=== PATIENT | male | born 2000 | race Caucasian/White ===

== ENCOUNTER 2022-02-20 12:44 | Emergency (ER) | payer OTHER, SELFPAY ==
[2022-02-20 12:52] VITALS: BP 122/70; PULSE 63; RESP 18; TEMP 37.1; O2SAT 98
--- NOTE | 2022-02-20 14:30 | DI.RAD_ITS ---
Exam(s) XR SHOULDER LT COMPLETE 2+V EXAM: XR SHOULDER LT COMPLETE 2+V CLINICAL HISTORY: trauma, left shoulder pain. TECHNIQUE: 2D digital imaging was performed. Three views. COMPARISON: No exams were available for comparison FINDINGS: BONES: No acute fracture is present. No bony destructive lesion is seen. JOINTS: No dislocation present. AC joint not widened. SOFT TISSUE: Normal. IMPRESSION: Unremarkable radiographs of the left shoulder. DATA REPOSITORY: RADIATION DOSE DELIVERED:
--- NOTE | 2022-02-20 14:37 | ED.GENADUL_ITS ---
Discharge Plan Disposition Patient Disposition: HOME Condition: Good Discharge Details Clinical Impression: Injury of shoulder Primary Care Provider: Unknown,Unknown ED Provider: Idalia Carter Discharge Instructions Instructions: Shoulder Sprain (ED), Shoulder Pain (ED) Additional Instructions: Please return immediately to the emergency department if you develop any new or worsening symptoms, if your condition does not improve as expected, or if you become otherwise concerned. It is extremely important that you call soon as possible to make an appointment to be seen in follow-up for this visit by your primary care doctor. Discharge Data Discharge Date/Time-TO BE ENTERED AT DEPARTURE: 02/20/22 15:51 Medical Decision Making Concern for shoulder fracture, contusion, other. Plan for x-rays. Exam/history at this time is not consistent with clavicle fracture, cervical/thoracic/lumbar spine fracture, neurovascular injury of the LUE, significant trauma of an area other than left shoulder. X-rays negative. Plan for sling, outpatient follow-up. I had a discussion with Patient regarding return to emergency department precautions, home care, and importance of outpatient follow-up. Pt verbalizes understanding of the plan and is amenable. Patient discharged to home with clear plan for outpatient follow- up. All questions were answered. Disposition decision was made weighing the risks and benefits of hospitalization versus outpatient treatment, the risk for further decompensation, and the patient's wishes. Medical Records Medical records reviewed: Yes I reviewed the patient's medical records. Imaging Data Radiologic Study: Attestation: I personally reviewed and interpreted this imaging study as follows: Radiologist's impression: EXAM:? XR SHOULDER LT COMPLETE 2+V CLINICAL HISTORY: ? trauma, left shoulder pain.? TECHNIQUE:? 2D digital imaging was performed.? Three views. COMPARISON:? No exams were available for comparison FINDINGS: BONES: No acute fracture is present. No bony destructive lesion is seen. JOINTS: No dislocation present.? AC joint not widened. SOFT TISSUE: Normal. IMPRESSION: Unremarkable radiographs of the left shoulder. HPI General Mode of arrival: ambulatory . Date/Time Provider Initiated Documentation: 02/20/22 12:53 . Limitations to Documentation: no limitations . Information obtained by: patient, RN notes reviewed and old records reviewed . HPI Narrative: Marko Cooper is a 21-year-old man without reported history of medical problems presenting to the emergency department with left shoulder pain. Patient reports that just prior to arrival he was skateboarding at a high rate of speed when he fell, landing on his left shoulder. Patient reports he did not hit his head, did not lose consciousness. He denies any other injury other than to left shoulder. He reports that range of motion of the left shoulder is somewhat limited secondary to pain, states that he is able to range his left elbow and left wrist normally. He denies any other pain or any other recent illness. Denies numbness or weakness. Reports that he was previously well in his usual state of health. General Stated Complaint: Orthopedic EVARISTO: 4 Review of Systems Narrative: Constitutional: denies fevers Eyes: denies eye pain ENT: denies ear pain, dental pain, sore throat Cardiovascular: denies chest pain Respiratory: denies SOB, cough GI: denies abdominal pain, vomiting, diarrhea : denies flank pain MSK: Reports left shoulder pain, denies back pain, neck pain, other arthralgias, myalgias Skin: denies rash, skin wound Neuro: denies headaches, numbness, weakness PFSH All Active Problems (Updated 02/20/22 @ 15:27 by Idalia Carter MD) Injury of shoulder (Acute) Social History Smoking/Tobacco Use Status: Current-Occasional Tobacco Type: e-cigarettes Smoking risk assessment performed?: Yes Alcohol Intake: current Alcohol Intake frequency: 0-2 drinks per day Drug use: Never Substance use type: marijuana Do you feel safe at home: Yes Do you feel safe in your relationship?: Yes Exam Narrative Exam Narrative: Constitutional: well and [id number], pleasant, conversing normally HENT: head atraumatic/normocephalic/normal inspection, mucous membranes moist Eyes: conjunctiva normal, sclera normal, pupils 3mm b/l Neck: no stridor, normal ROM, trachea midline Resp: normal work of breathing, speaking full sentences Cardio: normal rate, normal rhythm Skin: warm, dry, normal color, no rash Neuro: alert, not altered, grossly non-focal, normal tone Ext: no edema, left shoulder diffusely tender to palpation over anterior, superior, and posterior aspects without point tenderness palpation of the shoulder joint or scapula. There is no tenderness palpation of the left clavicle, midshaft/distal humerus, elbow, or forearm. Full painless range of motion of the left elbow and wrist. Motor left upper extremity intact, sensation left upper extremity intact, radial pulse intact. Psych: normal mood, normal affect, normal behavior Course Vital Signs Vital signs: Vital Signs Temperature 37.1 C 02/20/22 12:52 Pulse 63 02/20/22 12:52 Respiratory Rate 18 02/20/22 12:52 Blood Pressure 122/70 02/20/22 12:52 Pulse Oximetry 98 02/20/22 12:52 Temperature 37.1 C 02/20/22 12:52 Temperature Source Tympanic 02/20/22 12:52 Pulse 63 02/20/22 12:52 Respiratory Rate 18 02/20/22 12:52 Respiratory Effort 02/20/22 12:59 Blood Pressure 122/70 02/20/22 12:52 Blood Pressure Position Supine 02/20/22 12:52 Pulse Oximetry 98 02/20/22 12:52 Oxygen Delivery Method Room Air 02/20/22 12:52 Oxygen Flow Rate 0 02/20/22 12:52 Pain Level 3 02/20/22 12:52 PAWSS Have you Been Recently Intoxicated or Drunk Within the Last 30 days?: No Have you Ever Experienced Previous Episodes of Alcohol Withdrawal?: No Have you ever Experienced Withdrawal Seizures?: No Have you ever Experienced Delirium Tremens(DT)s?: No Have you ever undergone Alcohol Rehabilitation Treatment (i.e, inpt ot outpatient treatment programs)?: No Have you ever Experienced Blackouts?: No Have you ever Combined Alcohol with other Downers within the last 90 days?: No Have you ever Combined Alcohol with any other Substance of Abuse during the last 90 days?: No Positive Blood Alcohol level on Presentation? [PCS.BAL]: No Evidence of Increased Autonomic Activity (i.e. HR>120, tremor, sweating, agitation, nausea)?: No Result: 0
[2022-02-20] MEDS: Acetaminophen 325 MG TAB 650 MG PO (15:41)
[2022-02-20] MEDS: Ibuprofen 400 MG TAB PO (15:42)
== END 2022-02-20 15:51 | disposition home or self-care (01) ==
PROVIDERS: Emergency Provider Student in an Organized Health Care Education/Training Program
DX: S49.92XA Unspecified injury of left shoulder and upper arm, initial encounter (principal); F17.290 Nicotine dependence, other tobacco product, uncomplicated; V00.131A Fall from skateboard, initial encounter; Y93.51 Activity, roller skating (inline) and skateboarding
CPT/HCPCS: 99283; 73030; 99282